=== PATIENT | female | born 1995 | race African-American/Black ===

== ENCOUNTER 2024-11-26 10:10 | Emergency (ER) | payer OTHER, SELFPAY ==
[2024-11-26] VITALS (12 sets, daily range): BP systolic 123–146; BP diastolic 90–114; PULSE 59–85; RESP 12–29; TEMP 36.6; O2SAT 97–100
--- NOTE | ~2024-11-26 | CT_ITS ---
CT HEAD NON-CONTRAST Clinical History: headache,dizziness Comparison: None Technique: Unenhanced axial images skull base to vertex Coronal, sagittal reformats CT images acquired with automatic exposure control for dose reduction DLP: 605 mGy-cm Findings: Sulci, ventricles: Unremarkable. No intracerebral hemorrhage. No evidence acute territorial infarct. No mass effect, midline shift. Bony calvarium intact. Visualized paranasal sinuses: Clear. Mastoid air cells: Clear. IMPRESSION: 1. No acute intracranial findings. Reviewed, dictated and finalized at location R.
--- NOTE | 2024-11-26 11:10 | ECG_ITS ---
Test Date: 2024-11-26 11:46:24 Measurements Intervals [place] Rate: 60 P: 52 SC: 155 QRS: 69 QRSD: 85 T: 52 QT: 405 QTc: 406 Interpretive Statements SINUS RHYTHM NORMAL ECG No previous ECG available for comparison Electronically Signed On 11-26-2024 13:09:02 CDT by Hilton Vidal M.D.
--- NOTE | 2024-11-26 11:10 | ED_ITS ---
HPI - Headache General Chief Complaint: Headache Stated Complaint: headache Time Seen by Provider: 11/26/24 11:00 Source: patient Mode of arrival: ambulatory Limitations: no limitations History of Present Illness HPI Narrative: Paola is a 29-year-old female patient presenting to the ER today with complaints of headache, dizziness, and feeling faint. States when this occurs afterward she develops crying and cannot talk. She has had 2 episodes this past week-last episode was 2 days ago. Is reporting posterior left head tingling/pain. Rating it a 7/10 currently. She does report some nausea without vomiting. Decreased appetite. Last menstrual period started Sunday of this week. No history of migraines or seizures. History of anxiety. Related Data Allergies Allergy/AdvReac Type Severity Reaction Status Date / Time No Known Allergies Allergy Verified 11/26/24 10:44 Review of Systems 2 Review of Systems: Pertinent positives per HPI. Patient denies any fever, chills, rash, visual changes, dizziness, cough, runny nose, sore throat, chest pain, palpitations, nausea, vomiting, diarrhea, constipation, abdominal pain, or any urinary issues. PMFSH Comments At the time of my signature, I reviewed and agree with the nursing past medical, surgical, social, and family history. There is no relevant family history pertinent to the patient complaint. Exam 2 Narrative: General: Well-developed, well nourished, in no apparent distress Head: Normocephalic, atraumatic Eyes: Pupils equally round and reactive to light bilaterally, EOM intact, sclera and conjunctive clear, no discharge, lids normal Ears: TMs intact and clear, ear canals clear, no drainage, grossly hearing normal. Nose: Nares patent, no discharge, no inflammation, no sinus tenderness. Mouth: Oropharynx without lesions or masses, good dentition, MMM. Tongue midline, even rise and fall of uvula Neck: Supple, trachea midline, no enlargement of anterior or posterior cervical nodes, no thyroid masses or goiter palpable. Cardio: Regular rate and rhythm, s1 and s2 normal, no murmur appreciated. Resp: Clear to auscultation bilaterally anteriorly and posteriorly, no rhonchi, rales, wheezing or rubs Musculoskeletal: No deformity, non-tender to palpation, grossly normal range of motion, muscle strength strong and equal, peripheral pulse strong, no edema, no cyanosis, normal gait and station Neuro: Alert and oriented x4 with normal speech, no focal deficits, cranial nerves I through XII intact, muscle strength 5 out of 5, sensation intact bilaterally, negative Romberg test Course Course Emergency Course: Portions of this record may have been created with voice recognition software. Vital Signs Vital signs: Vital Signs Temperature 36.6 C 11/26/24 10:28 Pulse Rate 83 11/26/24 10:28 Respiratory Rate 20 11/26/24 10:28 Blood Pressure 146/98 H 11/26/24 10:28 Pulse Oximetry 100 11/26/24 10:28 Temperature 36.6 C 11/26/24 10:28 Pulse Rate 68 11/26/24 13:46 Respiratory Rate 20 11/26/24 13:46 Blood Pressure 123/94 H 11/26/24 13:46 Pulse Oximetry 97 11/26/24 13:46 Vital signs reviewed MDM - Headache MDM Narrative Medical decision making narrative: At the time of visit patient is resting comfortably on the exam table. Patient appears to be nontoxic. Complaints of headache, dizziness, and feeling faint. States when this occurs afterward she develops crying and cannot talk. She has had 2 episodes this past week-last episode was 2 days ago. Is reporting posterior left head tingling/pain. Rating it a 7/10 currently. She does report some nausea without vomiting. Decreased appetite. Last menstrual period started Sunday of this week. No history of migraines or seizures. History of anxiety. EKG, labs, and CT head was ordered EKG: EKG shows normal sinus rhythm with a heart rate of 60 beats per minute without ST elevation or depression. Labs: CBC 6.5, H&H is 11 and 34.8 platelet counts normal at 311, chemistry shows sodium 138, potassium 3.7, chloride 1 week BUN 12 and creatinine 0.63, GFR greater than 60, glucose is 92, liver function tests within normal limits Diagnostics: CT the head shows no acute intracranial process Plan: I suspect patient is having headaches possibly with anxiety. Prescription for Fioricet was sent to the pharmacy. Recommend follow-up with PCP in 5-7 days if symptoms persist-may need referral to Neurology. Supportive measures were discussed with the patient and they voiced understanding discharge instructions and agrees to treatment plan. Return precautions reviewed Differential Diagnosis Differential diagnosis: Likely migraine, tension headache, subarachnoid hemorrhage, headache, sinusitis and other (Seizure, anxiety) Lab Data 11/26/24 11:27 11/26/24 11:27 Labs: Lab Results 11/26/24 Range/Units 11:27 WBC 6.5 (4.5-10.0) K/mm3 RBC 4.22 (4.2-5.4) M/mm3 Hgb 11.0 L (12.0-15.0) g/dL Hct 34.8 L (37.0-47.0) % MCV 82.5 (80-100) fl MCH 26.1 (26-34) pg MCHC 31.6 L (32-36) g/dl RDW 16.0 H (11.5-14.5) % Plt Count 311 (150-375) k/mm3 MPV 9.2 (7.4-10.4) fl Immature Gran % (Auto) 0.3 (0-0.5) % Neut % (Auto) 60.0 (45.5-73.1) % Lymph % (Auto) 27.1 (18.3-44.2) % [place] % (Auto) 8.8 H (2.6-8.5) % Eos % (Auto) 3.3 (0-4.4) % Baso % (Auto) 0.5 (0.2-1.2) % Lymph # (Auto) 1.75 (0.9-3.2) K/mm3 [place] # (Auto) 0.6 (0.1-0.6) K/mm3 Eos # (Auto) 0.2 (0-0.3) K/mm3 Baso # (Auto) 0.0 (0.0-0.1) K/mm3 Abs Immat Gran (auto) 0.02 (0.00-0.031) K/mm3 Absolute Neuts (auto) 3.9 (1.3-6.7) K/mm3 Absolute Nucleated RBC 0.000 (0.0-0.012) K/mm3 Nucleated RBC % 0.0 (0.0-0.2) % Sodium 138 (137-145) mmol/L Potassium 3.7 (3.4-5.0) mmol/L Chloride 108 H (98-107) mmol/L Carbon Dioxide 24 (22-30) mmol/L Anion Gap 6 (4-12) mmol/L BUN 12 (7-17) mg/dL Creatinine 0.63 L (0.7-1.0) mg/dL Estim Creat Clear Calc 127 ml/min Estimated GFR > 60 (59 - ) Glucose 92 (65-110) mg/dL Calcium 8.8 (8.4-10.2) mg/dL Total Bilirubin 0.5 (0.2-1.3) mg/dL AST 29 (14-36) U/L ALT 15 (6-35) U/L Alkaline Phosphatase 72 (38-126) U/L Total Protein 8.0 (6.3-8.2) g/dL Albumin 4.3 (3.5-5.1) g/dL Imaging Data Radiologist's impression: ITS Impressions Head CT 11/26/24 11:21 IMPRESSION: 1. No acute intracranial findings. ECG Data EKG #1: Attestation: I personally reviewed and interpreted this ECG as follows: ECG completion date: 11/26/24 ECG completion time: 11:46 Prior ECG tracings: not available for review Interpretation: EKG shows normal sinus rhythm with a heart rate of 60 beats per minute. No ST elevation or depression noted. MN interval is 155 milliseconds, QRS durations 85 milliseconds, QT-QTC is 405-405 milliseconds, P-R-T axis is 52 69 52 Discharge Plan Discharge Clinical Impression: Headache Qualifiers: Headache type: unspecified Headache chronicity pattern: episodic headache I ntractability: intractable Qualified Code(s): R51.9 - Headache, unspecified Patient Disposition: Home Condition: Stable Instructions: Antibiotic Form, Acute Headache (ED) Additional Instructions: Your blood work that you are anemic You CT of your head is negative for any acute intracranial process EKG is reassuring. Increase fluids and stay well hydrated Take Fioricet as needed for headache May take Tylenol/Motrin additionally as needed for headache Follow-up with your PCP in 1 week if symptoms persist-they may want to refer you to neurologist if symptoms are persisting Patient Language: Romanian Prescriptions: New [id number] [Fioricet] 50-300-40 mg capsule 1 cap PO Q8H PRN (Reason: pain) 7 Days Qty: 21 0RF [id number] [Fioricet] 50-300-40 mg capsule 1 cap PO Q8H PRN (Reason: pain) Qty: 21 0RF Follow-up/Referrals: PHYSICIAN NOT ON STAFF,NONSTAFF [Primary Care Provider] Time of Disposition: 14:29 Quality NIHSS Nursing Documentation ED NIHSS nursing documentation: reviewed/agree
[2024-11-26 11:46] LABS: Hematocrit 34.8 % (37.0-47.0); Hemoglobin 11.0 g/dL (12.0-15.0); Immature Granulocyte Percent A 0.3 % (0-0.5); Lymphocytes Absolute Auto 1.75 K/mm3 (0.9-3.2); Mean Corpuscular HGB Conc 31.6 g/dl (32-36); Mean Corpuscular Hemoglobin 26.1 pg (26-34); Mean Corpuscular Volume 82.5 fl (80-100); Nucleated Red Blood Cells Absolute Auto 0.000 K/mm3 (0.0-0.012); Nucleated Red Blood Cells Perc 0.0 % (0.0-0.2); Platelet Count Result 311 k/mm3 (150-375); Red Blood Count 4.22 M/mm3 (4.2-5.4); White Blood Count 6.5 K/mm3 (4.5-10.0)
[2024-11-26 12:46] LABS: Alanine Aminotransferase 15 U/L (6-35); Albumin Level 4.3 g/dL (3.5-5.1); Alkaline Phosphatase 72 U/L (38-126); Anion Gap 6 mmol/L (4-12); Aspartate Amino Transferase 29 U/L (14-36); Bilirubin,Total 0.5 mg/dL (0.2-1.3); Blood Urea Nitrogen 12 mg/dL (7-17); Calcium 8.8 mg/dL (8.4-10.2); Carbon Dioxide 24 mmol/L (22-30); Chloride 108 mmol/L (98-107); Estimated CRCL calculation 127 ml/min; Estimated Glomerular Filt Rate > 60; Glucose 92 mg/dL (65-110); Potassium 3.7 mmol/L (3.4-5.0); Sodium 138 mmol/L (137-145); Total Protein 8.0 g/dL (6.3-8.2)
== END 2024-11-26 15:01 | disposition home or self-care (01) ==
PROVIDERS: Emergency Provider Nurse Practitioner Family
DX: R51.9 Headache, unspecified (principal)
CPT/HCPCS: 36415; 70450; 80053; 85025; 93005; 99284